=== PATIENT | male | born 1990 | race Caucasian/White ===

== ENCOUNTER 2016-07-14 14:36 | Emergency (ER) | payer BC ==
[~2016-07-14] VITALS: Ht 185.4 cm; Wt 86.2 kg
[2016-07-14] MEDS ORDERED: IV NS 0.9% 1,000 ML ONE (15:00)
[2016-07-14] MEDS ORDERED: IV NS 0.9% 1,000 ML BAG IV ONE (15:00)
[2016-07-14 15:30] LABS: BASOPHILS % (AUTO) 0.5 % (0.0-2.0); DIFF TOTAL % 100 %; EOSINOPHILS # (AUTO) 0.1 /CMM (0.0-0.7); EOSINOPHILS % (AUTO) 0.8 % (0.0-6.0); HEMATOCRIT 45 % (39-51); LYMPHOCYTES # (AUTO) 1.9 /CMM (0.8-4.8); LYMPHOCYTES % (AUTO) 26.5 % (20.0-44.0); MEAN CORPUSCULAR HEMOGLOBIN 33 PG (26.0-33.0); MEAN CORPUSCULAR HGB CONC 34 g/dl (31.0-36.0); MEAN CORPUSCULAR VOLUME 97 fL (80-96); MONOCYTES # (AUTO) 0.8 /CMM (0.1-1.30); MONOCYTES % (AUTO) 11.9 % (2.0-12.0); NEUTROPHILS # (AUTO) 4.3 /CMM (1.8-8.9); NEUTROPHILS % (AUTO) 60.3 % (43.0-81.0); PLATELET COUNT (AUTO) 339 /CMM (150-450); RED BLOOD CELL COUNT(AUTO) 4.61 MIL/uL (4.5-6.0); WHITE BLOOD COUNT (AUTO) 7.2 K/uL (4.3-11.0)
[2016-07-14 15:44] LABS: CALCIUM, SERUM 9.2 mg/dL (8.5-10.1); CREATININE 1.1 mg/dL (0.6-1.3); POTASSIUM 3.9 mmol/L (3.5-5.1)
[2016-07-14 15:48] LABS: ALBUMIN 4.2 g/dL (3.4-5.0); BILIRUBIN,DIRECT 0.1 mg/dL (0.0-0.2)
[2016-07-14 16:02] LABS: BILIRUBIN,TOTAL 0.7 mg/dL (0.2-1.0); TOTAL PROTEIN, SERUM 7.7 g/dL (6.4-8.2)
[2016-07-14 16:03] LABS: KETONES,URINE NEGATIVE (NEGATIVE); LEUKOCYTE ESTERASE ,URINE NEGATIVE (NEGATIVE)
[2016-07-14 16:05] LABS: INDIRECT BILIRUBIN 0.6 mg/dL (0.0-1.1)
[2016-07-14 16:05] LABS: ADD UA MICROSCOPIC YES
[2016-07-14 16:11] LABS: ADD URINE CULTURE NO; RBC,URINE 0-2 /HPF (0-2); WBC,URINE 0-2 /HPF (0-3)
[2016-07-14] MEDS ORDERED: IV NS 0.9% 250 ML IV ONE (17:54)
[2016-07-14] MEDS ORDERED: CT SWABBABLE VALVE TRANS SET 1 EA INFUS.SET MC ONE (17:54)
[2016-07-14] MEDS ORDERED: IOHEXOL-300 100 ML VIAL IV ONE (17:55)
[2016-07-14 19:54] VITALS: BP 124/75
== END 2016-07-14 19:54 | disposition home or self-care (01) ==
LOC: ER 14:44
DX: N20.0 Calculus of kidney (principal)
CPT/HCPCS: 36415; 74178; 76705; 80048; 80076; 81001; 83690; 85025; 96360; 99285; A4606; J7030; J7050; Q9967; Z7610; 81000-TC